=== PATIENT | female | born 1935 | race Caucasian/White ===

== ENCOUNTER 2018-06-02 08:00 | Outpatient (CLI) | payer MEDICARE, OTHER ==
[2018-06-02 12:19] LABS: BASOPHILS % (AUTO) 0.5 %; EOSINOPHILS # (AUTO) 0.2 10^3/uL (0.0-0.7); EOSINOPHILS % (AUTO) 2.4 %; HGB - HEMOGLOBIN 12.8 g/dL (12.0-16.0); LYMPHOCYTES # (AUTO) 2.7 10^3/uL (1.5-3.5); MEAN CORPUSCULAR HEMOGLOBIN 32.7 pg (27.0-31.0); MEAN CORPUSCULAR HGB CONC 34.3 g/dL (32.0-36.0); MEAN CORPUSCULAR VOLUME 95.4 fL (81.0-99.0); MEAN PLATELET VOLUME 7.6 fL (7.9-10.8); MONOCYTES # (AUTO) 0.4 10^3/uL (0.0-1.0); MONOCYTES % (AUTO) 6.1 %; NEUTROPHILS # (AUTO) 3.8 10^3/uL (1.5-6.6); PLT - PLATELET COUNT 230 10^3/uL (130-450); RED BLOOD COUNT 3.91 10^6/uL (4.20-5.40); RED CELL DISTRIBUTION WIDTH 14.7 % (12.0-15.0); WHITE BLOOD COUNT 7.1 x10^3/uL (4.8-10.8)
[2018-06-02 12:51] LABS: ALBUMIN/GLOBULIN RATIO 1.5 (1.0-2.2); ALKALINE PHOSPHATASE 49 IU/L (42-121); ALT ALANINE AMINOTRANSFERASE 12 IU/L (10-60); AST ASPARTATE AMINOTRANSFERASE 17 IU/L (10-42); BILIRUBIN,TOTAL 0.6 mg/dL (0.2-1.0); BUN - BLOOD UREA NITROGEN 18 mg/dL (6-20); CALCIUM 9.3 mg/dL (8.5-10.3); CARBON DIOXIDE - CO2 28 mmol/L (21-32); CHLORIDE 100 mmol/L (101-111); CHOL/HDL RATIO 3.4 (<4.4); CHOLESTEROL 196 mg/dL; CREATININE 1.3 mg/dL (0.4-1.0); GFR - MDRD 39 (>89); GLUCOSE 95 mg/dL (70-100); HDL CHOLESTEROL 58 mg/dL; LDL CHOLESTEROL,CALCULATED 105 mg/dL; LDL/HDL RATIO 1.8 (<4.4); SODIUM 138 mmol/L (135-145); TOTAL PROTEIN 6.7 g/dL (6.7-8.2); VLDL CHOLESTEROL 33 mg/dL
== END 2018-06-02 08:01 | disposition home or self-care (01) ==
LOC: LAB.N 08:00
PROVIDERS: ATTEND Nurse Practitioner
DX: I10 Essential (primary) hypertension (principal)
CPT/HCPCS: 36415; 80053; 80061; 83721; 85025

== ENCOUNTER 2018-06-07 09:28 | Outpatient (CLI) | payer MEDICARE ==
[2018-06-07 12:51] LABS: FERRITIN 99.9 ng/mL (11.0-306.8)
[2018-06-07 12:55] LABS: FOLATE 9.76 ng/mL (5.90 - >24.8)
[2018-06-07 13:10] LABS: % IRON SATURATION 18 % (20-50); IRON 58 ug/dL (28-170); TOTAL IRON BINDING CAPACITY 316 ug/dL (250-450); TRANSFERRIN 226 mg/dL (192-382)
== END 2018-06-07 09:29 | disposition home or self-care (01) ==
LOC: LAB.N 09:28
PROVIDERS: ATTEND Nurse Practitioner
DX: D64.9 Anemia, unspecified (principal)
CPT/HCPCS: 36415; 82607; 82728; 82746; 83540; 84466

== ENCOUNTER 2018-07-20 10:09 | Outpatient (CLI) | payer MEDICARE ==
[2018-07-20 15:01] LABS: CALCIUM 9.7 mg/dL (8.5-10.3); CREATININE 1.5 mg/dL (0.4-1.0)
== END 2018-07-20 10:10 | disposition home or self-care (01) ==
LOC: LAB.N 10:09
PROVIDERS: ATTEND Physician Assistant Medical
DX: M81.0 Age-related osteoporosis without current pathological fracture (principal); M85.80 Other specified disorders of bone density and structure, unspecified site; N18.3 Chronic kidney disease, stage 3 (moderate); E55.9 Vitamin D deficiency, unspecified
CPT/HCPCS: 36415; 80048; 82306